=== PATIENT | male | born 1965 | race Hispanic/Latino ===

== ENCOUNTER 2021-12-16 01:57 | Emergency (ER) | payer BC ==
[2021-12-16 02:02] VITALS: BP 134/77
[2021-12-16] MEDS ORDERED: LIDOCAINE-MPF (1%) 10 MG/1 ML VIAL 5 ML INFILTRATI ONE (04:22)
[2021-12-16] MEDS ORDERED: HYDROcodone/ACETAMINOPHEN 5-325 MG TAB PO ONE (04:22)
[2021-12-16] MEDS ORDERED: TETANUS,DIPH,PERTUSS(ACELL) VACCINE 0.5 ML SYRINGE IM ONE (04:22)
[2021-12-16] MEDS ORDERED: cephALEXin 500 MG CAP PO ONE (04:22)
--- NOTE | 2021-12-16 04:41 | Emergency Department Report ---
ED General Adult HPI - General Chief complaint: Wound/Laceration Stated complaint: CUT RT THUMB Time Seen by Provider: 12/16/21 04:18 Source: patient Mode of arrival: Ambulatory Limitations: No Limitations - History of Present Illness Initial comments: Patient 56-year-old right-handed male who presents for left distal thumb laceration states thumb was caught and metal cover causing laceration to distal thumb. Patient was seen by Meghanna sent to the emergency department for laceration. Patient complains of 7/10 pain that is aching and throbbing. Symptoms are exacerbated by palpitations and movement. Symptoms are relieved by nothing tried. Last tetanus shot unknown. There is no numbness no tingling no paralysis. Patient states incident did happen at work was reported to employer. - Related Data Previous Rx's Medication Instructions Recorded Last Taken Type HYDROcodone/APAP 5-325 [[place] 1 each PO Q6HR PRN #12 tablet 12/16/21 Unknown Rx 5-325 mg TAB] cephALEXin [Keflex] 500 mg PO Q8HR 7 Days #21 cap 12/16/21 Unknown Rx Allergies Allergy/AdvReac Type Severity Reaction Status Date / Time No Known Allergies Allergy Verified 12/16/21 02:01 ED Review of Systems ROS: Stated complaint: CUT RT THUMB Other details as noted in HPI Constitutional: denies: chills, fever Eyes: denies: eye pain, eye discharge, vision change ENT: denies: ear pain, throat pain Respiratory: denies: cough, shortness of breath, wheezing Cardiovascular: denies: chest pain, palpitations Endocrine: no symptoms reported Gastrointestinal: denies: abdominal pain, nausea, diarrhea Genitourinary: denies: urgency, dysuria Musculoskeletal: other Skin: other (Thumb laceration as above). denies: rash, lesions Neurological: denies: headache, weakness, paresthesias Psychiatric: denies: anxiety, depression Hematological/Lymphatic: denies: easy bleeding, easy bruising ED Past Medical Hx - Medications Home Medications: Home Medications Medication Instructions Recorded Confirmed Last Taken Type HYDROcodone/APAP 5-325 [[place] 1 each PO Q6HR PRN #12 tablet 12/16/21 Unknown Rx 5-325 mg TAB] cephALEXin [Keflex] 500 mg PO Q8HR 7 Days #21 cap 12/16/21 Unknown Rx ED Physical Exam - General Limitations: No Limitations General appearance: alert, in no apparent distress - Head Head exam: Present: normocephalic, normal inspection - Eye Eye exam: Present: EOMI Pupils: Present: normal accommodation - ENT ENT exam: Present: mucous membranes moist - Neck Neck exam: Present: normal inspection, full ROM. Absent: tenderness - Respiratory Respiratory exam: Present: normal lung sounds bilaterally. Absent: respiratory distress - Cardiovascular Cardiovascular Exam: Present: regular rate, normal rhythm, normal heart sounds. Absent: systolic murmur, diastolic murmur, rubs, gallop - GI/Abdominal GI/Abdominal exam: Present: soft, normal bowel sounds. Absent: distended, tenderness - Rectal Rectal exam: Present: deferred - Extremities Exam Extremities exam: Present: normal inspection - Expanded Upper Extremity Exam Right Hand Wrist exam: Present: full ROM, laceration (2 cm right distal thumb), nail avulsion, subungual hematoma Neuro motor exam: Present: wrist extension intact, thumb opposition intact, thumb IP flexion intact, thumb adduction intact, fingers 2-5 abduction intact Neurosensory exam: Present: radial nerve intact Vascular: Present: normal capillary refill - Back Exam Back exam: Present: normal inspection, full ROM. Absent: tenderness - Neurological Exam Neurological exam: Present: alert, oriented X3, CN II-XII intact, reflexes normal - Expanded Neurological Exam Expanded Patient oriented to: Present: person, place, time Speech: Present: fluid speech Motor strength exam: RUE: 5, LUE: 5, RLE: 5, LLE: 5 Best Eye Response ([place]): (4) open spontaneously Best Motor Response ([place]): (6) obeys commands Best Verbal Response ([place]): (5) oriented [place] Total: 15 - Psychiatric Psychiatric exam: Present: normal affect, normal mood - Skin Skin exam: Present: warm, dry, intact, normal color. Absent: rash ED Course Vital Signs 12/16/21 02:00 Temperature 97.9 F Pulse Rate 68 Respiratory 18 Rate Blood Pressure 134/77 O2 Sat by Pulse 99 Oximetry - Laceration /Wound Repair Right Distal Finger Wound Location: upper extremity (Right distal thumb laceration with nail damage open fracture of tuft) Wound Length (cm): 2 Wound's Depth, Shape: irregular, nail-avulsed (Partial avulsion) Wound Explored: clean Irrigated w/ Saline (ccs): 60 Betadine Prep?: Yes Anesthesia: 1% Lidocaine Volume Anesthetic (ccs): 3 Wound Debrided: minimal Wound Repaired With: sutures Suture Size/Type: 3:0, proline Number of Sutures: 8 (Nail used as anchor) Layer Closure?: No Sterile Dressing Applied?: Yes (Gauze and Medipore) Progress: Right distal thumb laceration to centimeter with partial nail avulsion there is an open fracture nondisplaced site cleaned with Betadine solution anesthesia 1% lidocaine via digital block digital block is achieved. Irrigated with 60 cc sterile saline, wound closed with 3-0 Prolene times 8 sutures, nail removed used anchor, all bleeding is controlled sterile dressing applied range of motion remains intact CMS remains intact. There is no obvious muscle nerve or tendon damage. Patient given follow-up instructions including follow-up with hand surgery, antibiotic therapy, symptoms of infection. Follow-up with hand surgery within the next 2 days for wound check, and for suture removal in 10 days. Patient verbalized agreement and understanding of same patient tolerated procedure with minimal distress. ED Medical Decision Making - Radiology Data Radiology results: report reviewed, image reviewed LEFT THUMB 4 VIEWS INDICATION / CLINICAL INFORMATION: Left thumb laceration. COMPARISON: None available. FINDINGS: BONES and JOINT(S): There is an acute fracture of the tip of the distal phalanx of the thumb. No dislocation. No significant arthritis. SOFT TISSUES: Moderate edema is seen throughout the thumb with a laceration of the tip of the thumb. There is associated soft tissue gas. No other significant abnormality. ADDITIONAL FINDINGS: None. IMPRESSION: Left thumb laceration/fracture. Signer Name: Walter Betancourt MD Signed: 12/16/2021 5:13 AM Workstation Name: [id number] Transcribed By: BRENDA Dictated By: Walter Betancourt MD Electronically Authenticated By: Walter Betancourt MD Signed Date/Time: 12/16/21512 DD/ 1 TD/TT: - Medical Decision Making This is a open distal fracture right thumb with partial nail avulsion. See procedure note for laceration repair nailbed was salvaged for anchor. All bleeding is controlled sterile dressings intact. Patient will follow-up with hand surgery in 2 days. And Workmen's Comp. doctor per employer direction. Patient tolerated procedure with minimal distress patient DC'd home in stable condition at this time. Patient DC'd home with prescriptions. Critical care attestation.: If time is entered above; I have spent that time in minutes in the direct care of this critically ill patient, excluding procedure time. ED Disposition Clinical Impression: Thumb fracture Qualifiers: Encounter type: initial encounter Fracture type: open Phalanx: distal Fracture alignment: nondisplaced Laterality: right Qualified Code(s): S62.524B - Nondisplaced fracture of distal phalanx of right thumb, initial encounter for open fracture Laceration of thumb Qualifiers: Encounter type: initial encounter Damage to nail status: with damage Foreign body presence: without foreign body Laterality: right Qualified Code(s): S61.111A - Laceration without foreign body of right thumb with damage to nail, initial encounter Disposition: HOME / SELF CARE / HOMELESS Is pt being admited?: No Does the pt Need Aspirin: No Condition: Stable Instructions: Sutures, [place], or Adhesive Wound Closure, Finger Fracture, Adult Additional Instructions: Follow-up with hand surgery in 2 days, follow-up with Workmen's Comp. doctor as directed by employer. Take medications as prescribed, return to emergency should symptoms worsen. Prescriptions: cephALEXin [Keflex] 500 mg PO Q8HR 7 Days #21 cap HYDROcodone/APAP 5-325 [[place] 5-325 mg TAB] 1 each PO Q6HR PRN #12 tablet PRN Reason: Pain Referrals: BRUNILDA DANIELS MD [Staff Physician] - 3-5 Days Heber Santiago MD [Other] - 3-5 Days Forms: Work/School Release Form(ED) Time of Disposition: 06:08
--- NOTE | 2021-12-16 05:17 | XRay Report ---
LEFT THUMB 4 VIEWS INDICATION / CLINICAL INFORMATION: Left thumb laceration. COMPARISON: None available. FINDINGS: BONES and JOINT(S): There is an acute fracture of the tip of the distal phalanx of the thumb. No disl ocation. No significant arthritis. SOFT TISSUES: Moderate edema is seen throughout the thumb with a laceration of the tip of the thumb. There is associated soft tissue gas. No other significant abnormality. ADDITIONAL FINDINGS: None. IMPRESSION: Left thumb laceration/fracture. Signer Name: Walter Betancourt MD Signed: 12/16/2021 5:13 AM Workstation Name: [id number]
== END 2021-12-16 06:28 | disposition home or self-care (01) ==
LOC: ED 01:57
DX: S62.522A Displaced fracture of distal phalanx of left thumb, initial encounter for closed fracture (principal); S61.012A Laceration without foreign body of left thumb without damage to nail, initial encounter; X58.XXXA Exposure to other specified factors, initial encounter; Y93.89 Activity, other specified; Y92.89 Other specified places as the place of occurrence of the external cause; Y99.8 Other external cause status
CPT/HCPCS: 11760; 73130; 90471; 90715; 99283; J3490